=== PATIENT | male | born 1940 | race Caucasian/White ===

== ENCOUNTER 2017-11-16 11:20 | Inpatient (IN) | payer BC ==
[2017-11-16 11:28] VITALS: BMI 27.8
--- NOTE | 2017-11-16 11:38 | PDOC ---
History of Present Illness - General History Source: Patient Exam Limitations: No Limitations - History of Present Illness Initial Comments: 11/16/17 12:35 Patient is a 77 year old male with a significant past medical history of Tremor (10 years), Parkinson's, COPD, HTN, Hypercholesterolemia, depression who presents to the ED with complaints of facial droop that occured last night at 9pm. Patient reports while drinking liquids last night, he noticed having trouble controlling his mouth on his right side. He reports waking up this morning and noticed that he was experiencing right sided facial droop as well as slight slurred speech. Denies chest pain, SOB. Denies nausea, vomiting. Denies headache, change in vision. Denies decreased extremity sensation. Denies any other symptoms. Allergies: Codeine Social history: Former smoker. No alcohol. No illicit drugs. Surgical history: Cholecystectomy PMD: None <Damaso Mae - Last Filed: 11/16/17 12:35> <Ama Leroy - Last Filed: 11/16/17 14:56> - General Chief Complaint: Facial Droop Stated Complaint: PAIN Time Seen by Provider: 11/16/17 11:31 NIH Stroke Scale - Last Known Well Date/Time & Onset Date Last Known Well: 11/15/17 - Initial Evaluation Level of consciousness: Alert Ask patient the month and their age: Answers both correctly Ask patient to open & close eyes; make fist and let go: Obeys both correctly Best gaze (horizontal eye movement): Normal Visual field testing: No visual field loss Facial paresis (Show teeth/raise eyebrows/close eyes tight): Complete paralysis of one or both sides (Upper and lower face) Motor Function: Left Arm: Normal Motor Function: Right Arm: Normal (extends arm 90 (or 45) degrees for 10 seconds without drift Motor Function: Left Leg: Normal (extends leg 30 degrees for 5 seconds without drift) Motor Function: Right Leg: Normal (extends leg 30 degrees for 5 seconds without drift) Limb Ataxia: No ataxia Sensory(Use pinprick test arms,legs,trunk,face/side to side): Normal Best language (Describe picture, name items, read sentences): No Aphasia Dysarthria (read several words): Mild to moderate slurring of words Extinction and Inattention: No abnormality - Total Score NIH Stroke Scale Score: 4 <Ama Leroy - Last Filed: 11/16/17 14:56> Past History <Damaso Mae - Last Filed: 11/16/17 12:35> - Past Medical History Anemia: No Asthma: No Cancer: No Cardiac Disorders: No CVA: No COPD: Yes CHF: No Dementia: No Diabetes: Yes GI Disorders: No Disorders: No HTN: Yes Hypercholesterolemia: Yes Liver Disease: No Psychiatric Problems: Yes (DEPRESSION.) Seizures: No Thyroid Disease: No - Surgical History Abdominal Surgery: Yes Appendectomy: No Cardiac Surgery: No Cholecystectomy: Yes Lung Surgery: No Neurologic Surgery: No Orthopedic Surgery: No - Suicide/Smoking/Psychosocial Hx Smoking History: Former smoker Have you smoked in the past 12 months: No If you are a former smoker, when did you quit?: 1994 Information on smoking cessation initiated: No Hx Alcohol Use: Yes (occasionally) Drug/Substance Use Hx: No Substance Use Type: None Hx Substance Use Treatment: No <Ama Leroy - Last Filed: 11/16/17 14:56> - Past Medical History Allergies/Adverse Reactions: Allergies Allergy/AdvReac Type Severity Reaction Status Date / Time codeine Allergy Verified 11/16/17 11:25 Home Medications: Ambulatory Orders Aspirin [ASA -] 81 mg PO DAILY 06/23/15 Fluticasone/Salmeterol [Advair 250-50 Diskus] 1 each IH DAILY 06/23/15 Lisinopril [Zestril] 20 mg PO DAILY 06/23/15 Tamsulosin HCl [Flomax -] 0.4 mg PO DAILY 06/23/15 Tiotropium [place] [Spiriva] 1 inh PO DAILY 06/23/15 Venlafaxine HCl ER [Effexor Xr -] 150 mg PO BID 06/23/15 Atorvastatin Ca [Lipitor] 1 tab PO DAILY 08/03/16 Ibuprofen 400 mg PO PRN PRN 08/03/16 Sitagliptin Phos/Metformin HCl [Janumet 50-1,000 mg Tablet] 1 tab PO DAILY 08/03 Review of Systems - Review of Systems Able to Perform ROS?: Yes Comments:: 11/16/17 12:35 GENERAL/CONSTITUTIONAL: No fever or chills. No weakness. HEAD, EYES, EARS, NOSE AND THROAT: +Right facial droop. No change in vision. No ear pain or discharge. No sore throat. GASTROINTESTINAL: No nausea, vomiting, diarrhea or constipation. GENITOURINARY: No dysuria, frequency, or change in urination. CARDIOVASCULAR: No chest pain or shortness of breath. RESPIRATORY: No cough, wheezing, or hemoptysis. MUSCULOSKELETAL: No joint or muscle swelling or pain. No neck or back pain. SKIN: No rash NEUROLOGIC:+Slurred speech. No headache, vertigo, loss of consciousness, or change in strength/sensation. ENDOCRINE: No increased thirst. No abnormal weight change. HEMATOLOGIC/LYMPHATIC: No anemia, easy bleeding, or history of blood clots. ALLERGIC/IMMUNOLOGIC: No hives or skin allergy. All Other Systems: Reviewed and Negative <Damaso Mae - Last Filed: 11/16/17 12:35> *Physical Exam - Vital Signs Last Vital Signs Temp Pulse Resp BP Pulse Ox 97.7 F 113 H 19 167/112 100 11/16/17 11:25 11/16/17 11:25 11/16/17 11:25 11/16/17 11:25 11/16/17 11:35 - Physical Exam Comments: 11/16/17 12:35 GENERAL: Awake, alert, and fully oriented, in no acute distress HEAD: No signs of trauma EYES: PERRLA, EOMI, sclera anicteric, conjunctiva clear ENT: Auricles normal inspection, hearing grossly normal, nares patent, oropharynx clear without exudates. Moist mucosa NECK: Normal ROM, supple, no lymphadenopathy, JVD, or masses LUNGS: Breath sounds equal, clear to auscultation bilaterally. No wheezes, and no crackles HEART: Regular rate and rhythm, normal S1 and S2, no murmurs, rubs or gallops ABDOMEN: Soft, nontender, normoactive bowel sounds. No guarding, no rebound. No masses EXTREMITIES: Normal range of motion, no edema. No clubbing or cyanosis. No cords, erythema, or tenderness NEUROLOGICAL: See NIHSS. SKIN: Warm, Dry, normal turgor, no rashes or lesions noted. <Damaso Mae - Last Filed: 11/16/17 12:35> - Vital Signs Last Vital Signs Temp Pulse Resp BP Pulse Ox 97.7 F 113 H 19 167/112 99 11/16/17 11:25 11/16/17 11:25 11/16/17 11:25 11/16/17 11:25 11/16/17 11:25 <Ama Leroy - Last Filed: 11/16/17 14:56> ED Treatment Course - LABORATORY CBC & Chemistry Diagram: 11/16/17 11:40 11/16/17 11:40 - ADDITIONAL ORDERS Additional order review: Laboratory Results 11/16/17 11:40 Sodium 135 L Potassium 4.2 Chloride 97 L Carbon Dioxide 27 Anion Gap 11 BUN 17 D Creatinine 0.8 Creat Clearance w eGFR > 60 Random Glucose 161 H Calcium 8.9 Total Bilirubin 0.3 D AST 27 ALT 35 D Alkaline Phosphatase 125 H D Creatine Kinase 68 Troponin I < 0.02 Total Protein 7.3 Albumin 3.4 Triglycerides 142 Cholesterol 121 Total LDL Cholesterol 62 HDL Cholesterol 42 11/16/17 11:40 RBC 5.08 MCV 80.8 MCHC 32.0 RDW 15.1 MPV 7.6 Neutrophils % 69.4 Lymphocytes % 22.2 D Monocytes % 5.2 Eosinophils % 2.3 D Basophils % 0.9 <Damaso Mae - Last Filed: 11/16/17 12:35> - LABORATORY CBC & Chemistry Diagram: 11/16/17 11:40 11/16/17 11:40 <Ama Leroy - Last Filed: 11/16/17 14:56> Medical Decision Making - Medical Decision Making 11/16/17 11:42 Code bautista was not called, patient's symptoms started last night and he is not a tPA candidate. <Ama Leroy - Last Filed: 11/16/17 14:56> *DC/Admit/Observation/Transfer - Attestations Scribe Attestion: 11/16/17 12:35 Documentation prepared by Damaso Mae, acting as registered medical transcriptionist for Ama Leroy MD, /DO. <Damaso Mae - Last Filed: 11/16/17 12:35> - Discharge Dispostion Admit: Yes <Ama Leroy - Last Filed: 11/16/17 14:56> Diagnosis at time of Disposition: CVA (cerebral vascular accident) - Discharge Dispostion Condition at time of disposition: Stable
[2017-11-16] MEDS: SODIUM CHLORIDE 1,000 ML IV SCH ×2 (12:05→22:25)
[2017-11-16 12:12] LABS: BASO % 0.9 % (0-2.0); EOS % 2.3 % (0-4.5); HEMATOCRIT 41.1 % (35.4-49); HEMOGLOBIN 13.1 GM/dL (11.7-16.9); LYMPH % 22.2 % (8-40); MCH 25.9 pg (25.7-33.7); MEAN CELL VOLUME 80.8 fl (80-96); MEAN PLT VOLUME 7.6 fl (7.5-11.1); MONO % 5.2 % (3.8-10.2); NEUT % 69.4 % (42.8-82.8); PLATELET COUNT 326 K/MM3 (134-434); RBC 5.08 M/mm3 (4.00-5.60); RDW 15.1 % (11.9-15.9)
[2017-11-16 12:22] LABS: ALBUMIN 3.4 g/dl (3.4-5.0); ANION GAP 11 (8-16); BLOOD UREA NITROGEN 17 mg/dL (7-18); CALCIUM 8.9 mg/dL (8.5-10.1); CHLORIDE 97 mmol/L (98-107); CO2 27 mmol/L (21-32); GLUCOSE,RANDOM 161 mg/dL (74-106); POTASSIUM 4.2 mmol/L (3.5-5.1); SODIUM 135 mmol/L (136-145)
[2017-11-16 12:26] LABS: CHOLESTEROL 121 mg/dL (50-200); CREATININE 0.8 mg/dL (0.7-1.3); SGOT/AST 27 U/L (15-37); SGPT/ALT 35 U/L (12-78); TRIGLYCERIDES 142 mg/dL (35-160)
[2017-11-16 12:27] LABS: BILIRUBIN,TOTAL 0.3 mg/dL (0.2-1.0); LDL CHOLESTEROL (ONLY SJRH) 62 mg/dL (5-100); TOT PROT 7.3 g/dl (6.4-8.2)
[2017-11-16 12:28] LABS: ALK PHOS 125 U/L (45-117); HDL CHOLESTEROL 42 mg/dL (40-60)
[2017-11-16 13:06] LABS: INR 1.14 (0.82-1.09); PROTHROMBIN TIME (PATIENT) 12.9 SEC (9.98-11.88)
[2017-11-16 17:36] LABS: URINE APPEARANCE CLEAR; URINE BILIRUBIN NEGATIVE (NEGATIVE); URINE BLOOD NEGATIVE (NEGATIVE); URINE COLOR LTYELLOW; URINE GLUCOSE (UA) NEGATIVE (NEGATIVE); URINE KETONE NEGATIVE (NEGATIVE); URINE NITRITE NEGATIVE (NEGATIVE); URINE PROTEIN NEGATIVE (NEGATIVE); URINE UROBILINOGEN NEGATIVE mg/dL (0.2-1.0)
[2017-11-16 17:47] LABS: URINE LEUK ESTERASE 2+ (NEGATIVE)
[2017-11-16 17:48] LABS: EPI CELLS RARE /HPF (FEW); URINE MUCUS RARE
--- NOTE | 2017-11-16 17:56 | HP ---
CHIEF COMPLAINT: PCP: HISTORY OF PRESENT ILLNESS: Patient is a 77 year old male with a significant past medical history of tremors (10 years), Parkinson's disease, COPD, HTN, Hypercholesterolemia and depression who presents to the ED with complaints of facial droop that occurred last night at 9pm before going to bed. As per patient and , patient noticed that his right face began to droop while drinking water and noted that the water was spilling out right side of his mouth. Patient went to bed and when he woke up he noted that his was having right sided facial droop as well as slight slurred speech. On exam, he denies chest pain, shortness of breath, denies nausea, vomiting, visual changes. ER course was notable for: (1) Head CT, no significant changes or gross acute intracranial pathology. (2) MRI pending (3) Recent Travel: PAST MEDICAL HISTORY: tremors (10 years), Parkinson's disease, COPD, HTN, Hypercholesterolemia and depression PAST SURGICAL HISTORY: Cholecystectomy PMD: None Social History: Smoking: former smoker Alcohol: none Drugs: none Family History: Allergies codeine Allergy (Verified 11/16/17 11:25) HOME MEDICATIONS: Home Medications Medication Instructions Recorded Aspirin [ASA -] 81 mg PO DAILY 06/23/15 Fluticasone/Salmeterol [Advair 1 each IH DAILY 06/23/15 250-50 Diskus] Lisinopril [Zestril] 20 mg PO DAILY 06/23/15 Tamsulosin HCl [Flomax -] 0.4 mg PO DAILY 06/23/15 Tiotropium [place] [Spiriva] 1 inh PO DAILY 06/23/15 Venlafaxine HCl ER [Effexor Xr -] 150 mg PO BID 06/23/15 Atorvastatin Ca [Lipitor] 1 tab PO DAILY 08/03/16 Ibuprofen 400 mg PO PRN PRN 08/03/16 Sitagliptin Phos/Metformin HCl 1 tab PO DAILY 08/03/16 [Janumet 50-1,000 mg Tablet] REVIEW OF SYSTEMS CONSTITUTIONAL: Absent: fever, chills, diaphoresis, generalized weakness, malaise, loss of appetite, weight change HEENT: Absent: rhinorrhea, nasal congestion, throat pain, throat swelling, difficulty swallowing, mouth swelling, ear pain, eye pain, visual changes CARDIOVASCULAR: Absent: chest pain, syncope, palpitations, irregular heart rate, lightheadedness , peripheral edema RESPIRATORY: Absent: cough, shortness of breath, dyspnea with exertion, orthopnea, wheezing, stridor, hemoptysis GASTROINTESTINAL: Absent: abdominal pain, abdominal distension, nausea, vomiting, diarrhea, constipation, melena, hematochezia GENITOURINARY: Absent: dysuria, frequency, urgency, hesitancy, hematuria, flank pain, genital pain MUSCULOSKELETAL: Absent: myalgia, arthralgia, joint swelling, back pain, neck pain SKIN: Absent: rash, itching, pallor HEMATOLOGIC/IMMUNOLOGIC: Absent: easy bleeding, easy bruising, lymphadenopathy, frequent infections ENDOCRINE: Absent: unexplained weight gain, unexplained weight loss, heat intolerance, cold intolerance PSYCHIATRIC: Absent: anxiety, depression, suicidal or homicidal ideation, hallucinations. PHYSICAL EXAMINATION Vital Signs - 24 hr 11/16/17 11/16/17 11/16/17 11:25 11:35 12:25 Temperature 97.7 F Pulse Rate 113 H Pulse Rate [ 80 Right] Respiratory 19 18 Rate Blood Pressure 167/112 Blood Pressure 155/90 [Right Arm] O2 Sat by Pulse 99 100 Oximetry (%) GENERAL: Awake, alert, and fully oriented, in no acute distress. HEAD: Normal with no signs of trauma, right sided palsy, right facial droop, slurred speech EARS, NOSE, THROAT: Ears normal, nares patent, oropharynx clear without exudates. Moist mucous membranes. NECK: Normal range of motion, supple without lymphadenopathy, JVD, or masses. LUNGS: Breath sounds equal, clear to auscultation bilaterally. No wheezes, and no crackles. No accessory muscle use. HEART: Regular rate and rhythm ABDOMEN: Soft, nontender, not distended, normoactive bowel sounds, no guarding, no rebound, no masses. No hepatomegaly or splenomegaly. MUSCULOSKELETAL: Normal range of motion at all joints. No bony deformities or tenderness. No CVA tenderness. UPPER EXTREMITIES: No clubbing. No peripheral edema. LOWER EXTREMITIES: No calf tenderness. No peripheral edema. Laboratory Results - last 24 hr 11/16/17 11/16/17 11/16/17 11:38 11:40 11:40 WBC 8.0 RBC 5.08 Hgb 13.1 Hct 41.1 MCV 80.8 MCH 25.9 D MCHC 32.0 RDW 15.1 Plt Count 326 MPV 7.6 Neutrophils % 69.4 Lymphocytes % 22.2 D Monocytes % 5.2 Eosinophils % 2.3 D Basophils % 0.9 PT with INR 12.90 H INR 1.14 Sodium Potassium Chloride Carbon Dioxide Anion Gap BUN Creatinine Creat Clearance w eGFR Random Glucose Calcium Total Bilirubin AST ALT Alkaline Phosphatase Creatine Kinase Troponin I Total Protein Albumin Triglycerides Cholesterol Total LDL Cholesterol HDL Cholesterol Urine Color Urine Appearance Urine pH Ur Specific [place] Urine Protein Urine Glucose (UA) Urine Ketones Urine Blood Urine Nitrite Urine Bilirubin Urine Urobilinogen Ur Leukocyte Esterase Urine WBC (Auto) Urine RBC (Auto) Ur Epithelial Cells Urine Mucus Blood Type O POSITIVE Antibody Screen Negative 11/16/17 11/16/17 11:40 12:25 WBC RBC Hgb Hct MCV MCH MCHC RDW Plt Count MPV Neutrophils % Lymphocytes % Monocytes % Eosinophils % Basophils % PT with INR INR Sodium 135 L Potassium 4.2 Chloride 97 L Carbon Dioxide 27 Anion Gap 11 BUN 17 D Creatinine 0.8 Creat Clearance w eGFR > 60 Random Glucose 161 H Calcium 8.9 Total Bilirubin 0.3 D AST 27 ALT 35 D Alkaline Phosphatase 125 H D Creatine Kinase 68 Troponin I < 0.02 Total Protein 7.3 Albumin 3.4 Triglycerides 142 Cholesterol 121 Total LDL Cholesterol 62 HDL Cholesterol 42 Urine Color Ltyellow Urine Appearance Clear Urine pH 7.0 Ur Specific [place] 1.010 Urine Protein Negative Urine Glucose (UA) Negative Urine Ketones Negative Urine Blood Negative Urine Nitrite Negative Urine Bilirubin Negative Urine Urobilinogen Negative Ur Leukocyte Esterase 2+ H Urine WBC (Auto) 5 Urine RBC (Auto) 1 Ur Epithelial Cells Rare Urine Mucus Rare Blood Type Antibody Screen ASSESSMENT/PLAN: Patient is a 77 year old male with a significant past medical history of tremors (10 years), Parkinson's disease, COPD, HTN, Hypercholesterolemia and depression who presents to the ED with complaints of facial droop that occurred last night at 9pm before going to bed. As per patient and , patient noticed that his right face began to droop while drinking water and noted that the water was spilling out right side of his mouth. Patient went to bed and when he woke up he noted that his was having right sided facial droop as well as slight slurred speech. On exam, he denies chest pain, shortness of breath, denies nausea, vomiting, visual changes. Neurology: Rule out acute stroke CT head with no significant interval changes, no ICH. Brain MRI pending NPO pending swallow eval [id number] in a.m. lipid panel Neurology consulted Monitor on tele Hypertension Monitor BP in the setting of acute stroke
[2017-11-16] MEDS ORDERED: ARTIFICIAL TEARS (POLYVINYL ALCOHOL 1.4%) OPTH DROPS OD PRN (18:03)
[2017-11-16] MEDS ORDERED: SODIUM CHLORIDE 1,000 ML IV SCH (19:15)
[2017-11-16] MEDS ORDERED: ALPRAZolam 0.25 MG TABLET PO PRN (22:00)
[2017-11-16] MEDS ORDERED: VENLAFAXINE HCL 150 MG E.R. CAPSULE PO SCH (22:00)
[2017-11-16] MEDS ORDERED: CARBIDOPA/LEVODOPA 25/100 TABLET (FP) PO SCH (22:00)
[2017-11-16] MEDS ORDERED: OCULAR LUBRICANT OPHTHALMIC OINTMENT 7 GM TUBE OD SCH (22:00)
[2017-11-16] MEDS: CARBIDOPA/LEVODOPA 25/100 TABLET (FP) PO SCH (22:25)
[2017-11-16] MEDS: BUDESONIDE/FORMETEROL FUMARATE 80/4.5 mcg INHALER IH SCH (22:26)
[2017-11-17] MEDS: CARBIDOPA/LEVODOPA 25/100 TABLET (FP) PO SCH ×2 (05:41→14:57)
[2017-11-17 06:43] LABS: EOS % 2.8 % (0-4.5); HEMATOCRIT 35.2 % (35.4-49); HEMOGLOBIN 11.6 GM/dL (11.7-16.9); MCH 26.8 pg (25.7-33.7); MEAN PLT VOLUME 7.6 fl (7.5-11.1); MONO % 7.3 % (3.8-10.2); NEUT % 62.9 % (42.8-82.8); PLATELET COUNT 308 K/MM3 (134-434); RBC 4.35 M/mm3 (4.00-5.60); RDW 15.1 % (11.9-15.9); WHITE BLOOD COUNT 6.1 K/mm3 (4.0-10.0)
[2017-11-17 07:22] LABS: ALBUMIN 3.1 g/dl (3.4-5.0); ANION GAP 7 (8-16); BLOOD UREA NITROGEN 15 mg/dL (7-18); CALCIUM 8.2 mg/dL (8.5-10.1); CHLORIDE 99 mmol/L (98-107); CO2 31 mmol/L (21-32); GLUCOSE,RANDOM 105 mg/dL (74-106); POTASSIUM 3.9 mmol/L (3.5-5.1); SODIUM 137 mmol/L (136-145)
[2017-11-17 07:26] LABS: ALK PHOS 88 U/L (45-117); BILIRUBIN,TOTAL 0.4 mg/dL (0.2-1.0); CHOLESTEROL 110 mg/dL (50-200); CREATININE 0.9 mg/dL (0.7-1.3); HDL CHOLESTEROL 37 mg/dL (40-60); LDL CHOLESTEROL (ONLY SJRH) 59 mg/dL (5-100); SGOT/AST 31 U/L (15-37); SGPT/ALT 18 U/L (12-78); TOT PROT 6.1 g/dl (6.4-8.2); TRIGLYCERIDES 122 mg/dL (35-160)
[2017-11-17] MEDS ORDERED: TAMSULOSIN HCL 0.4 MG CAP.ER.24H (FP) PO SCH (08:30)
--- NOTE | 2017-11-17 09:03 | CONSULT ---
Consult - text type - Consultation Consultation Note: Neurology History of Present Illness Patient is a 77 year old male with a significant past medical history of Tremor (10 years), Parkinson's, COPD, HTN, Hypercholesterolemia, depression who presents to the ED with complaints of facial droop. Patient reports while drinking liquids last night, he noticed having trouble controlling his mouth on his right side. He reports waking up this morning and noticed that he was experiencing right sided facial droop as well as slight slurred speech. Denies chest pain, SOB. Denies nausea, vomiting. Denies headache, change in vision. Denies decreased extremity sensation. Denies any other symptoms. CT head completed and did not show acute change. Thereafter, had MRI brain which i also reviewed and did not show infarct. 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 at bedside and had discussion, both were relieved to learn of MRI results. Patient would benefit from eye patch and eye drops. Should also get 7 day course of prednisone to try to expedite recovery. Past History - Past Medical History Anemia: No Asthma: No Cancer: No Cardiac Disorders: No CVA: No COPD: Yes CHF: No Dementia: No Diabetes: Yes GI Disorders: No Disorders: No HTN: Yes Hypercholesterolemia: Yes Liver Disease: No Psychiatric Problems: Yes (DEPRESSION.) Seizures: No Thyroid Disease: No - Surgical History Abdominal Surgery: Yes Appendectomy: No Cardiac Surgery: No Cholecystectomy: Yes Lung Surgery: No Neurologic Surgery: No Orthopedic Surgery: No - Suicide/Smoking/Psychosocial Hx Smoking History: Former smoker Have you smoked in the past 12 months: No If you are a former smoker, when did you quit?: 1994 Information on smoking cessation initiated: No Hx Alcohol Use: Yes (occasionally) Drug/Substance Use Hx: No Substance Use Type: None Hx Substance Use Treatment: No - Past Medical History Allergies/Adverse Reactions: Allergies Allergy/AdvReac Type Severity Reaction Status Date / Time codeine Allergy Verified 11/16/17 11:25 Home Medications: Ambulatory Orders Aspirin [ASA -] 81 mg PO DAILY 06/23/15 Fluticasone/Salmeterol [Advair 250-50 Diskus] 1 each IH DAILY 06/23/15 Lisinopril [Zestril] 20 mg PO DAILY 06/23/15 Tamsulosin HCl [Flomax -] 0.4 mg PO DAILY 06/23/15 Tiotropium [place] [Spiriva] 1 inh PO DAILY 06/23/15 Venlafaxine HCl ER [Effexor Xr -] 150 mg PO BID 06/23/15 Atorvastatin Ca [Lipitor] 1 tab PO DAILY 08/03/16 Ibuprofen 400 mg PO PRN PRN 08/03/16 Sitagliptin Phos/Metformin HCl [Janumet 50-1,000 mg Tablet] 1 tab PO DAILY 08/03 Review of Systems GENERAL/CONSTITUTIONAL: No fever or chills. No weakness. HEAD, EYES, EARS, NOSE AND THROAT: +Right facial droop. No change in vision. No ear pain or discharge. No sore throat. GASTROINTESTINAL: No nausea, vomiting, diarrhea or constipation. GENITOURINARY: No dysuria, frequency, or change in urination. CARDIOVASCULAR: No chest pain or shortness of breath. RESPIRATORY: No cough, wheezing, or hemoptysis. MUSCULOSKELETAL: No joint or muscle swelling or pain. No neck or back pain. SKIN: No rash NEUROLOGIC:+Slurred speech. No headache, vertigo, loss of consciousness, or change in strength/sensation. ENDOCRINE: No increased thirst. No abnormal weight change. HEMATOLOGIC/LYMPHATIC: No anemia, easy bleeding, or history of blood clots. ALLERGIC/IMMUNOLOGIC: No hives or skin allergy. All Other Systems: Reviewed and Negative *Physical Exam Vital Signs Period Temp Pulse Resp BP Sys/Acuna Pulse Ox Last 24 Hr 97.3 F-97.7 F 71-113 18-20 130-167/56-112 97-100 GENERAL: Awake, alert, and fully oriented, in no acute distress HEAD: No signs of trauma EYES: PERRLA, EOMI, sclera anicteric, conjunctiva clear ENT: Auricles normal inspection, hearing grossly normal, nares patent, oropharynx clear without exudates. Moist mucosa NECK: Normal ROM, supple, no lymphadenopathy, JVD, or masses LUNGS: Breath sounds equal, clear to auscultation bilaterally. No wheezes, and no crackles HEART: Regular rate and rhythm, normal S1 and S2, no murmurs, rubs or gallops ABDOMEN: Soft, nontender, normoactive bowel sounds. No guarding, no rebound. No masses EXTREMITIES: Normal range of motion, no edema. No clubbing or cyanosis. No cords, erythema, or tenderness NEUROLOGICAL: See NIHSS. SKIN: Warm, Dry, normal turgor, no rashes or lesions noted. Laboratory Results 11/16/17 11:40 Sodium 135 L Potassium 4.2 Chloride 97 L Carbon Dioxide 27 Anion Gap 11 BUN 17 D Creatinine 0.8 Creat Clearance w eGFR > 60 Random Glucose 161 H Calcium 8.9 Total Bilirubin 0.3 D AST 27 ALT 35 D Alkaline Phosphatase 125 H D Creatine Kinase 68 Troponin I < 0.02 Total Protein 7.3 Albumin 3.4 Triglycerides 142 Cholesterol 121 Total LDL Cholesterol 62 HDL Cholesterol 42 11/16/17 11:40 RBC 5.08 MCV 80.8 MCHC 32.0 RDW 15.1 MPV 7.6 Neutrophils % 69.4 Lymphocytes % 22.2 D Monocytes % 5.2 Eosinophils % 2.3 D Basophils % 0.9 CT head reviewed MRI brain reviewed Plan: 77 year old male with a significant past medical history of Tremor (10 years), Parkinson's, COPD, HTN, Hypercholesterolemia, depression who presents to the ED with complaints of facial droop. Patient reports while drinking liquids last night, he noticed having trouble controlling his mouth on his right side. He reports waking up this morning and noticed that he was experiencing right sided facial droop as well as slight slurred speech. Denies chest pain, SOB. Denies nausea, vomiting. Denies headache, change in vision. Denies decreased extremity sensation. Denies any other symptoms. CT head completed and did not show acute change. Thereafter, had MRI brain which i also reviewed and did not show infarct. 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 at bedside and had discussion , both were relieved to learn of MRI results. Patient would benefit from eye patch and eye drops. Should also get 7 day course of prednisone to try to expedite recovery. Can follow up as outpatient. Continue BP control, maintain normotensive range. Encouraged ASA 81mg daily. Avoid driving until much improved , can take weeks to months, explained to patient. Fall precautions.
[2017-11-17 09:30] VITALS: TEMP 97.3
[2017-11-17] MEDS: BUDESONIDE/FORMETEROL FUMARATE 80/4.5 mcg INHALER IH SCH (09:34)
[2017-11-17] MEDS ORDERED: predniSONE 20 MG TABLET (UD) PO ONE (10:00)
[2017-11-17] MEDS ORDERED: TIOTROPIUM BROMIDE 18 MCG/INH (DEVICE W/ 5 CAPSULES) IH SCH (10:00)
[2017-11-17] MEDS ORDERED: LISINOPRIL 20 MG TABLET (FP) PO SCH (10:00)
[2017-11-17] MEDS ORDERED: ASPIRIN 81 MG CHEWABLE TABLETS PO SCH (10:00)
[2017-11-17] MEDS ORDERED: amLODIPine BESYLATE 5 MG TABLET (FP) PO SCH (10:15)
--- NOTE | 2017-11-17 10:59 | CONSULT ---
Admitting History and Physical - Primary Care Physician PCP: Wilman Chand - Admission History of Present Illness: Per EMR: Patient is a 77 year old male with a significant past medical history of tremors (10 years), Parkinson's disease, COPD, HTN, Hypercholesterolemia and depression who presents to the ED with complaints of facial droop that occurred last night at 9pm before going to bed. As per patient and , patient noticed that his right face began to droop while drinking water and noted that the water was spilling out right side of his mouth. Patient went to bed and when he woke up he noted that his was having right sided facial droop as well as slight slurred speech. 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 I concur, with right upper and lower facial weakness. - Smoking History Smoking history: Former smoker Have you smoked in the past 12 months: No If you are a former smoker, when did you quit?: 1994 - Alcohol/Substance Use Hx Alcohol Use: Yes (occasionally) History - Admission Reason For Visit: CVA - Diagnostics X-ray: Report Reviewed CT Scan: Report Reviewed MRI: Pending - General Mental Status: Alert and Oriented, Awake and Alert, Able to Follow Commands Attention: Intact Ability to Follow Directions: Excellent Head/Neck Control: WFL - Hearing Hearing: Normal Speech Evaluation - Communication Primary Language: ARMENIAN Communication: Yes: Within Normal Limits - Speech Production Able to Make Needs Known: Yes: WNL Intelligibility: Yes: Mildly Impaired - Speech Characteristics Voice Loudness: Normal Voice Pitch: Yes: Normal Voice Phonatory-based Quality: Yes: Normal Speech Clarity: < 100% Nasal Resonance: Normal Articulation: Yes: Imprecise (mild) - Language/Auditory Comprehension Follows: Yes: 2 Stage Simple Commands - Language/Verbal Expression Able to Respond to Simple Queries: Yes: WNL Able to Communicate Wants and Needs: Yes: WNL Functional Communication Status: Yes: WNL - Memory/Perception director long term care Memory: Yes: WNL Short Term Memory: Yes: WNL - Swallow Evaluation/Bedside Assessment Current Nutritional Intake: Dysphagia Whole, [place] Textured Liquids Oral Secretions: Yes: WFL Dentition: Yes: Adequate Facial Symmetry at Rest: Facial Droop Right Facial Symmetry on Retraction: Facial Droop Right (No movement) Sensation: Normal Pucker Lips: Droops Right (No movement) Lingual Movement: Normal Lingual Speed of Movement: Normal Lingual Movement Strgth Against Opposition: Normal Lingual Movement Characteristics: Normal Velopharyngeal Movement: Normal Laryngeal Movement: Able to Palpate, Labored,delay initiation Rate of Intake: WFL Bolus Size: WFL Labial Seal: Impaired Right (drooling when drinking, better oral containment with a straw, but increases risk of aspiration on thin liquid.) Oral Prep Time: Increased A-P Transit: Impaired Timing of Swallow: Delayed Coughing/Throat Clear: Yes (thin water) Recommendations - Speech Evaluation, Impression/Plan Impression: 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 I concur, with right upper and lower facial weakness. Pt with h/o coughing on liquids for over a month. Upon review of swallowing behaviors, pt reclines after eating lunch, drinks a lot of caffienated coffee, eats oranges, etc. Suspect dysphagia with liquids secondary to Laryngopharyngeal reflux, less likely from Parkinson's dx.Drooling when drinking from a cup. Better oral containment with straw , but increases risk of aspiration on thin liquid. - Dysphagia Impressions/Plan Swallowing Skills: Impaired Dysphagia Impressions: Mild Impairment, Suspect Aspiration *Silent aspiration: cannot be R/O at bedside Dysphagia Treatment Plan: Labial Exercises, OOB for meals, OOB for 1 h. after meals Recommendations: MBS w Esophagus - Recommendations Diet Consistency: Regular (soft), Other (GERD precautions. Eliminate Caffiene, carbonation, [place], Tomatoes, onions, garlic,spicy foods.) Medication Administration: Crushed with applesauce Liquids: [place] Thick, Other (straw ok with nectar thick for now.)
--- NOTE | 2017-11-17 11:28 | CON.CARD ---
Cardiology Consult (text) - Consultation Consultation Note: cc: slurred speech, facial droop hpi: 77 m hx htn, hld, copd, parkinsons, here with slurred speech/facial droop. Started yesterday. No cp, sob, palps, dizzy, loc, pnd, orthopnea, le edema. No hx hrt dz. 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 pmh: per hpi psh: cholecystectomy social: ex tob fam: no premature cad/scd ros: per hpi; no nvd, fever, vision changes, rash, wt loss, gib, hematuria, dysuria, muscle pain meds: Home Medications Medication Instructions Recorded Aspirin [ASA -] 81 mg PO DAILY 06/23/15 Fluticasone/Salmeterol [Advair 1 each IH DAILY 06/23/15 250-50 Diskus] Lisinopril [Zestril] 20 mg PO DAILY 06/23/15 Tamsulosin HCl [Flomax -] 0.4 mg PO DAILY 06/23/15 Tiotropium [place] [Spiriva] 1 inh PO DAILY 06/23/15 Venlafaxine HCl ER [Effexor Xr -] 150 mg PO BID 06/23/15 Atorvastatin Ca [Lipitor] 1 tab PO DAILY 08/03/16 Ibuprofen 400 mg PO PRN PRN 08/03/16 Sitagliptin Phos/Metformin HCl 1 tab PO DAILY 08/03/16 [Janumet 50-1,000 mg Tablet] Alprazolam [Xanax] 0.5 mg PO HS PRN 11/16/17 Amlodipine Besylate [Norvasc -] 5 mg PO DAILY 11/16/17 Carbidopa/Levodopa 1 each PO TID 11/16/17 [Carbidopa-Levodopa 25-100 Tab] Omeprazole 20 mg PO DAILY 11/16/17 Sitagliptin Phos/Metformin HCl 1 each PO 11/16/17 [Janumet 50-1,000 mg Tablet] pe: Vital Signs Period Temp Pulse Resp BP Sys/Acuna Pulse Ox Last 24 Hr 97.3 F-97.7 F 69-113 18-20 130-186/56-112 97-100 nad no jvd rrr s1s2 no mrg cta bl nl eff aaox3 no le e/c/c abd nt nd pos bs no jaundice diaphoresis pos dp pt Laboratory Last Values WBC 6.1 K/mm3 (4.0-10.0) 11/17/17 05:35 RBC 4.35 M/mm3 (4.00-5.60) 11/17/17 05:35 Hgb 11.6 GM/dL (11.7-16.9) L D 11/17/17 05:35 Hct 35.2 % (35.4-49) L 11/17/17 05:35 MCV 81.0 fl (80-96) 11/17/17 05:35 MCH 26.8 pg (25.7-33.7) 11/17/17 05:35 MCHC 33.0 g/dl (32.0-35.9) 11/17/17 05:35 RDW 15.1 % (11.9-15.9) 11/17/17 05:35 Plt Count 308 K/MM3 (134-434) 11/17/17 05:35 MPV 7.6 fl (7.5-11.1) 11/17/17 05:35 Neutrophils % 62.9 % (42.8-82.8) 11/17/17 05:35 Lymphocytes % 26.0 % (8-40) 11/17/17 05:35 Monocytes % 7.3 % (3.8-10.2) 11/17/17 05:35 Eosinophils % 2.8 % (0-4.5) 11/17/17 05:35 Basophils % 1.0 % (0-2.0) 11/17/17 05:35 PT with INR 12.90 SEC (9.98-11.88) H 11/16/17 11:40 INR 1.14 (0.82-1.09) 11/16/17 11:40 Sodium 137 mmol/L (136-145) 11/17/17 05:35 Potassium 3.9 mmol/L (3.5-5.1) 11/17/17 05:35 Chloride 99 mmol/L (98-107) 11/17/17 05:35 Carbon Dioxide 31 mmol/L (21-32) 11/17/17 05:35 Anion Gap 7 (8-16) L 11/17/17 05:35 BUN 15 mg/dL (7-18) 11/17/17 05:35 Creatinine 0.9 mg/dL (0.7-1.3) 11/17/17 05:35 Creat Clearance w eGFR > 60 (>60) 11/17/17 05:35 POC Glucometer 111 UNITS (80-120) 11/16/17 18:48 Random Glucose 105 mg/dL (74-106) D 11/17/17 05:35 Hemoglobin A1c % 7.1 % (4.8-6.0) H 11/17/17 05:35 Calcium 8.2 mg/dL (8.5-10.1) L 11/17/17 05:35 Total Bilirubin 0.4 mg/dL (0.2-1.0) D 11/17/17 05:35 AST 31 U/L (15-37) 11/17/17 05:35 ALT 18 U/L (12-78) D 11/17/17 05:35 Alkaline Phosphatase 88 U/L (45-117) D 11/17/17 05:35 Creatine Kinase 68 IU/L (39-308) 11/16/17 11:40 Troponin I < 0.02 ng/ml (0.00-0.05) 11/16/17 11:40 Total Protein 6.1 g/dl (6.4-8.2) L 11/17/17 05:35 Albumin 3.1 g/dl (3.4-5.0) L 11/17/17 05:35 Triglycerides 122 mg/dL (35-160) 11/17/17 05:35 Cholesterol 110 mg/dL (50-200) 11/17/17 05:35 Total LDL Cholesterol 59 mg/dL (5-100) 11/17/17 05:35 HDL Cholesterol 37 mg/dL (40-60) L 11/17/17 05:35 Urine Color Ltyellow 11/16/17 12:25 Urine Appearance Clear 11/16/17 12:25 Urine pH 7.0 (5.0-8.0) 11/16/17 12:25 Ur Specific [place] 1.010 (1.001-1.035) 11/16/17 12:25 Urine Protein Negative (NEGATIVE) 11/16/17 12:25 Urine Glucose (UA) Negative (NEGATIVE) 11/16/17 12:25 Urine Ketones Negative (NEGATIVE) 11/16/17 12:25 Urine Blood Negative (NEGATIVE) 11/16/17 12:25 Urine Nitrite Negative (NEGATIVE) 11/16/17 12:25 Urine Bilirubin Negative (NEGATIVE) 11/16/17 12:25 Urine Urobilinogen Negative mg/dL (0.2-1.0) 11/16/17 12:25 Ur Leukocyte Esterase 2+ (NEGATIVE) H 11/16/17 12:25 Urine WBC (Auto) 5 /hpf (3-5) 11/16/17 12:25 Urine RBC (Auto) 1 /hpf (0-3) 11/16/17 12:25 Ur Epithelial Cells Rare /HPF (FEW) 11/16/17 12:25 Urine Mucus Rare 11/16/17 12:25 Blood Type O POSITIVE 11/16/17 11:38 Antibody Screen Negative 11/16/17 11:38 tele: sr, occ pacs ecg: sr, 1st avb, irbbb, nl qtc, no ischemic changes a/p: 77 m hx htn, hld, copd, parkinsons, here with slurred speech/facial droop. facial droop/slurred speech: -mri brain shows no acute findings -seen by neuro and thought to have bells palsy, now on steroids -no signs acs, chf. -check echo htn: -elevated, will resume home meds and monitor response hld: -cont statin if echo benign and bp improved later today then pt ok for dc from cardiac pov
--- NOTE | 2017-11-17 13:30 | EKG ---
Test Reason : Blood Pressure : / mmHG Vent. Rate : 101 BPM Atrial Rate : 101 BPM P-R Int : 224 ms QRS Dur : 110 ms QT Int : 368 ms P-R-T Axes : 010 -47 040 degrees QTc Int : 477 ms POOR DATA QUALITY, INTERPRETATION MAY BE ADVERSELY AFFECTED SINUS TACHYCARDIA WITH 1ST DEGREE A-V BLOCK LEFT AXIS DEVIATION INCOMPLETE RIGHT BUNDLE BRANCH BLOCK MINIMAL VOLTAGE CRITERIA FOR LVH, MAY BE NORMAL VARIANT ANTEROSEPTAL INFARCT (CITED ON OR BEFORE 23-JUN-2015) ABNORMAL ECG Confirmed by MD SUMMER, PINKY ([id number]) on 11/17/2017 1:30:37 PM Referred By: Confirmed By:PINKY WHEELER MD
--- NOTE | 2017-11-17 14:11 | PN ---
Physical Exam: SUBJECTIVE: Patient seen and examined OBJECTIVE: Vital Signs Period Temp Pulse Resp BP Sys/Acuna Pulse Ox Last 24 Hr 97.3 F-97.7 F 69-110 18-20 130-186/56-96 95-98 GENERAL: The patient is awake, alert, and fully oriented, in no acute distress. HEAD: Normal with no signs of trauma. EYES: PERRL, extraocular movements intact, sclera anicteric, conjunctiva clear. No ptosis. ENT: Ears normal, nares patent, oropharynx clear without exudates, moist mucous membranes. NECK: Trachea midline, full range of motion, supple. LUNGS: Breath sounds equal, clear to auscultation bilaterally, no wheezes, no crackles, no accessory muscle use. HEART: Regular rate and rhythm, S1, S2 without murmur, rub or gallop. ABDOMEN: Soft, nontender, nondistended, normoactive bowel sounds, no guarding, no rebound, no hepatosplenomegaly, no masses. EXTREMITIES: 2+ pulses, warm, well-perfused, no edema. NEUROLOGICAL: Cranial nerves II through XII grossly intact. Normal speech, gait not observed. PSYCH: Normal mood, normal affect. SKIN: Warm, dry, normal turgor, no rashes or lesions noted Laboratory Results - last 24 hr 11/16/17 11/16/17 11/17/17 12:25 18:48 05:35 WBC 6.1 RBC 4.35 Hgb 11.6 L D Hct 35.2 L MCV 81.0 MCH 26.8 MCHC 33.0 RDW 15.1 Plt Count 308 MPV 7.6 Neutrophils % 62.9 Lymphocytes % 26.0 Monocytes % 7.3 Eosinophils % 2.8 Basophils % 1.0 Sodium Potassium Chloride Carbon Dioxide Anion Gap BUN Creatinine Creat Clearance w eGFR POC Glucometer 111 Random Glucose Hemoglobin A1c % Calcium Total Bilirubin AST ALT Alkaline Phosphatase Total Protein Albumin Triglycerides Cholesterol Total LDL Cholesterol HDL Cholesterol Urine Color Ltyellow Urine Appearance Clear Urine pH 7.0 Ur Specific [place] 1.010 Urine Protein Negative Urine Glucose (UA) Negative Urine Ketones Negative Urine Blood Negative Urine Nitrite Negative Urine Bilirubin Negative Urine Urobilinogen Negative Ur Leukocyte Esterase 2+ H Urine WBC (Auto) 5 Urine RBC (Auto) 1 Ur Epithelial Cells Rare Urine Mucus Rare 11/17/17 11/17/17 05:35 05:35 WBC RBC Hgb Hct MCV MCH MCHC RDW Plt Count MPV Neutrophils % Lymphocytes % Monocytes % Eosinophils % Basophils % Sodium 137 Potassium 3.9 Chloride 99 Carbon Dioxide 31 Anion Gap 7 L BUN 15 Creatinine 0.9 Creat Clearance w eGFR > 60 POC Glucometer Random Glucose 105 D Hemoglobin A1c % 7.1 H Calcium 8.2 L Total Bilirubin 0.4 D AST 31 ALT 18 D Alkaline Phosphatase 88 D Total Protein 6.1 L Albumin 3.1 L Triglycerides 122 Cholesterol 110 Total LDL Cholesterol 59 HDL Cholesterol 37 L Urine Color Urine Appearance Urine pH Ur Specific [place] Urine Protein Urine Glucose (UA) Urine Ketones Urine Blood Urine Nitrite Urine Bilirubin Urine Urobilinogen Ur Leukocyte Esterase Urine WBC (Auto) Urine RBC (Auto) Ur Epithelial Cells Urine Mucus Active Medications Generic Name Dose Route Start Last Admin Trade Name Freq PRN Reason Stop Dose Admin Alprazolam 0.5 mg 11/16/17 22:00 11/16/17 22:25 Xanax - PO 0.5 mg HS PRN Administration ANXIETY Amlodipine Besylate 5 mg 11/17/17 10:15 11/17/17 11:43 Norvasc - PO 5 mg DAILY JON Administration Artificial Tears 1 applic 11/16/17 22:00 11/16/17 22:27 Lacri-Lube Eye Ointment - OD 1 applic HS JON Administration Artificial Tears 1 drop 11/16/17 18:03 11/17/17 09:38 Artificial Tears OD 1 drop PRN PRN Administration DRY EYES Aspirin 81 mg 11/17/17 10:00 11/17/17 09:33 Asa - PO 81 mg DAILY JON Administration Atorvastatin Calcium 20 mg 11/17/17 22:00 Lipitor - PO HS JON Budesonide/Formoterol Fumarate 2 puff 11/16/17 22:00 11/17/17 09:34 Symbicort 80/4.5mcg - IH 2 puff BID JON Administration Carbidopa/Levodopa 1 each 11/16/17 22:00 11/17/17 05:41 Sinemet 25/100 - PO 1 each TID JON Administration Lisinopril 20 mg 11/17/17 10:00 11/17/17 09:33 Prinivil PO 20 mg DAILY JON Administration Tamsulosin HCl 0.4 mg 11/17/17 08:30 11/17/17 08:25 Flomax - PO 0.4 mg DAILY@0830 JON Administration Tiotropium [place] 1 puff 11/17/17 10:00 11/17/17 09:34 Spiriva - IH 1 puff DAILY JON Administration Venlafaxine HCl 150 mg 11/16/17 22:00 Effexor Xr - PO BID [facility] ASSESSMENT/PLAN: Patient is a 77 year old male with a significant past medical history of tremors (10 years), Parkinson's disease, COPD, HTN, Hypercholesterolemia and depression who presents to the ED with complaints of facial droop that occurred last night at 9pm before going to bed. As per patient and , patient noticed that his right face began to droop while drinking water and noted that the water was spilling out right side of his mouth. Patient went to bed and when he woke up he noted that his was having right sided facial droop as well as slight slurred speech. Imaging: Head CT, no significant changes or gross acute intracranial pathology. 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 Marie within 1 month Hypertension: Elevated BP today Stop IVF Amlodopine 5mg given by rate supervisor Monitor BP Echo as per cardiology HLD On Lipitor 20mg daily Lipid panel reviewed. Discharge once BP stablizes, pending echo results. full code.
[2017-11-17 15:21] VITALS: BP 174/86; PULSE 76
[2017-11-17] MEDS ORDERED: amLODIPine BESYLATE 5 MG TABLET (FP) PO ONE (15:27)
--- NOTE | 2017-11-17 15:34 | DS ---
Physical Exam: SUBJECTIVE: Patient seen and examined OBJECTIVE: Vital Signs Period Temp Pulse Resp BP Sys/Acuna Pulse Ox Last 24 Hr 97.3 F-97.7 F 69-110 18-20 130-186/56-96 95-98 PHYSICAL EXAM GENERAL: The patient is awake, alert, and fully oriented, in no acute distress. HEAD: Normal with no signs of trauma. EYES: PERRL, extraocular movements intact, sclera anicteric, conjunctiva clear. ENT: Ears normal, nares patent, oropharynx clear without exudates, moist mucous membranes. NECK: Trachea midline, full range of motion, supple. LUNGS: Breath sounds equal, clear to auscultation bilaterally, no wheezes, no crackles, no accessory muscle use. HEART: Regular rate and rhythm, S1, S2 without murmur, rub or gallop. ABDOMEN: Soft, nontender, nondistended, normoactive bowel sounds, no guarding, no rebound, no hepatosplenomegaly, no masses. EXTREMITIES: 2+ pulses, warm, well-perfused, no edema. NEUROLOGICAL: Cranial nerves II through XII grossly intact. Normal speech, gait not observed. PSYCH: Normal mood, normal affect. SKIN: Warm, dry, normal turgor, no rashes or lesions noted. LABS Laboratory Results - last 24 hr 11/16/17 11/16/17 11/17/17 12:25 18:48 05:35 WBC 6.1 RBC 4.35 Hgb 11.6 L D Hct 35.2 L MCV 81.0 MCH 26.8 MCHC 33.0 RDW 15.1 Plt Count 308 MPV 7.6 Neutrophils % 62.9 Lymphocytes % 26.0 Monocytes % 7.3 Eosinophils % 2.8 Basophils % 1.0 Sodium Potassium Chloride Carbon Dioxide Anion Gap BUN Creatinine Creat Clearance w eGFR POC Glucometer 111 Random Glucose Hemoglobin A1c % Calcium Total Bilirubin AST ALT Alkaline Phosphatase Total Protein Albumin Triglycerides Cholesterol Total LDL Cholesterol HDL Cholesterol Urine Color Ltyellow Urine Appearance Clear Urine pH 7.0 Ur Specific [place] 1.010 Urine Protein Negative Urine Glucose (UA) Negative Urine Ketones Negative Urine Blood Negative Urine Nitrite Negative Urine Bilirubin Negative Urine Urobilinogen Negative Ur Leukocyte Esterase 2+ H Urine WBC (Auto) 5 Urine RBC (Auto) 1 Ur Epithelial Cells Rare Urine Mucus Rare 11/17/17 11/17/17 05:35 05:35 WBC RBC Hgb Hct MCV MCH MCHC RDW Plt Count MPV Neutrophils % Lymphocytes % Monocytes % Eosinophils % Basophils % Sodium 137 Potassium 3.9 Chloride 99 Carbon Dioxide 31 Anion Gap 7 L BUN 15 Creatinine 0.9 Creat Clearance w eGFR > 60 POC Glucometer Random Glucose 105 D Hemoglobin A1c % 7.1 H Calcium 8.2 L Total Bilirubin 0.4 D AST 31 ALT 18 D Alkaline Phosphatase 88 D Total Protein 6.1 L Albumin 3.1 L Triglycerides 122 Cholesterol 110 Total LDL Cholesterol 59 HDL Cholesterol 37 L Urine Color Urine Appearance Urine pH Ur Specific [place] Urine Protein Urine Glucose (UA) Urine Ketones Urine Blood Urine Nitrite Urine Bilirubin Urine Urobilinogen Ur Leukocyte Esterase Urine WBC (Auto) Urine RBC (Auto) Ur Epithelial Cells Urine Mucus HOSPITAL COURSE: Date of Admission:11/16/17 Date of Discharge: 11/17/17 Discharge Summary Reason For Visit: CVA Current Active Problems CVA (cerebral vascular accident) (Acute) Condition: Improved - Instructions Diet, Activity, Other Instructions: Mr. Garces: Continue on a regular diet and sit upright for all meals. Please continue thin liquids as directed by the speech therapist. If you have difficulty swallowing , please change to [place] Thick fluids. Sit upright for all meals, wait 2 hours after meals if laying down in bed. Please follow up with Dr. Marie within 1 month for follow up. Please call his office for lab test results next week. New Medications: Prednisone 50mg once daily at 8am on 11/18/2017 Prednisone 40mg once daily at 8am on 11/19/2017 Prednisone 30mg once daily at 8am on 11/20/2017 Prednisone 20mg once daily at 8am on 11/21/2017 Prednisone 10mg once daily at 8am on 11/22/2017 - last dose Amlodopine 5mg daily (blood pressure medication), new medication called into your pharmacy. Please see your data analytics analyst for follow up as this medication may need to be adjusted. Augmentin twice per day for urinary tract infection - take for 5 more days [facility] [phone] Referrals: Arnulfo Gibbs MD [Primary Care Provider] - Disposition: HOME - Home Medications Comprehensive Discharge Medication List: Ambulatory Orders Aspirin [ASA -] 81 mg PO DAILY 06/23/15 Fluticasone/Salmeterol [Advair 250-50 Diskus] 1 each IH DAILY 06/23/15 Lisinopril [Zestril] 20 mg PO DAILY 06/23/15 Tamsulosin HCl [Flomax -] 0.4 mg PO DAILY 06/23/15 Tiotropium [place] [Spiriva] 1 inh PO DAILY 06/23/15 Venlafaxine HCl ER [Effexor Xr -] 150 mg PO BID 06/23/15 Atorvastatin Ca [Lipitor] 1 tab PO DAILY 08/03/16 Ibuprofen 400 mg PO PRN PRN 08/03/16 Sitagliptin Phos/Metformin HCl [Janumet 50-1,000 mg Tablet] 1 tab PO DAILY 08/03 Alprazolam [Xanax] 0.5 mg PO HS PRN 11/16/17 Amlodipine Besylate [Norvasc -] 5 mg PO DAILY 11/16/17 Carbidopa/Levodopa [Carbidopa-Levodopa 25-100 Tab] 1 each PO TID 11/16/17 Omeprazole 20 mg PO DAILY 11/16/17 Sitagliptin Phos/Metformin HCl [Janumet 50-1,000 mg Tablet] 1 each PO 11/16/17 Amlodipine Besylate [Norvasc -] 5 mg PO DAILY #30 tablet 11/17/17 Amox-Tr/K Cl [Augmentin 250-125mg Tablet -] 1 tab PO BID@0800,1730 #10 tablet Carbidopa/Levodopa 25/100 [Sinemet 25/100 -] 1 each PO QID tablet 11/17/17 Carbidopa/Levodopa 25/100 [Sinemet 25/100 -] 1 each PO TID tablet 11/17/17 Ocular Lubricant Ophth Oint [Lacri-Lube S.o.p -] 1 applic OD HS tube 11/17/17 Polyvinyl Alcohol [Artificial Tears] 1 drop OD PRN PRN drops 11/17/17 Prednisone See Taper PO DAILY #30 tablet 11/17/17
[2017-11-17] MEDS ORDERED: AMOX TR/POT CLAV 250MG/125MG TABLETS PO SCH (17:30)
[2017-11-17] MEDS ORDERED: ATORVASTATIN CA 20 MG TABLET (FP) PO SCH (22:00)
[2017-11-20 10:08] LABS: DRVVT - 30.4 sec (0.0-47.0)
== END 2017-11-17 15:51 | disposition home or self-care (01) | DRG 74 ==
LOC: JER 11:20 → JERBED 14:57 → J4S 18:00
PROVIDERS: ADMIT Hospitalist; ATTEND Nurse Practitioner Family
DX: G51.0 Bell's palsy (principal); J44.9 Chronic obstructive pulmonary disease, unspecified; I10 Essential (primary) hypertension; E78.00 Pure hypercholesterolemia, unspecified; F32.9 Major depressive disorder, single episode, unspecified; G20 Parkinson's disease; Z87.891 Personal history of nicotine dependence
CPT/HCPCS: 36415; 70450-TC; 70551-TC; 74230-TC; 80053; 80061; 81003; 81015; 82465; 82550; 82962; 83036; 83718; 83721; 84478; 84484; 85025; 85610; 85613; 85732; 86618; 86790; 86850; 86900; 86901; 87086; 92611-GN; 93005; 93010; 93306-TC; 99285-25

== ENCOUNTER 2023-05-15 12:03 | Emergency (ER) | payer BC ==
[2023-05-15 13:01] VITALS: BP 146/89; PULSE 89; RESP 18; TEMP 98.2; BMI 27.8
[2023-05-15] MEDS ORDERED: ACETAMINOPHEN 325 MG TABLET (FP) PO ONE (13:21)
[2023-05-15] MEDS ORDERED: ACETAMINOPHEN 325 MG TABLET (FP) ONE (13:23)
== END 2023-05-15 13:35 | disposition home or self-care (01) ==
LOC: FER 12:03
DX: S46.911A Strain of unspecified muscle, fascia and tendon at shoulder and upper arm level, right arm, initial encounter (principal); X50.1XXA Overexertion from prolonged static or awkward postures, initial encounter
CPT/HCPCS: 73030-TC-RT-FY; 99283-25

== ENCOUNTER 2023-11-22 23:29 | Emergency (ER) | payer BC ==
[2023-11-22 23:36] VITALS: TEMP 98; BMI 27.8
[2023-11-23 00:19] VITALS: BP 194/82; PULSE 92; RESP 16
== END 2023-11-23 00:40 | disposition left against medical advice (07) ==
LOC: JER 23:29
DX: R09.89 Other specified symptoms and signs involving the circulatory and respiratory systems (principal); T18.100A Unspecified foreign body in esophagus causing compression of trachea, initial encounter
CPT/HCPCS: 99282-25